=== PATIENT | male | born 1990 | race Caucasian/White ===

== ENCOUNTER 2025-07-24 20:31 | Emergency (ER) | payer BC, SELFPAY ==
[2025-07-24 20:33] VITALS: BP 170/84; PULSE 100; RESP 20; TEMP 37; O2SAT 98; BMI 31.2
[2025-07-24 20:54] VITALS: BP 141/96; PULSE 98
--- NOTE | 2025-07-24 21:03 | PC.NURSE ---
Pt medicated per [facility] Plan of care ongoing.
--- NOTE | 2025-07-24 22:01 | ED.GENADULT ---
HPI - General Adult General Chief complaint: Allergic Reaction Stated complaint: allergic reaction Time Seen by Provider: 07/24/25 21:16 Source: patient Mode of arrival: ambulatory Limitations: no limitations History of Present Illness ED Provider: Dr. Lock [facility] narrative: 34-year-old male presented hospital today for allergic reaction. Patient stated that he ate some food in his suddenly broke out in rash. Also feels some sensation in the back of the throat. He took some Benadryl prior to arrival here. Related Data Previous Rx's ?Medication ?Instructions ?Recorded diphenhydramine HCl 25 mg capsule 50 mg (2 x 25 mg) PO BEDTIME PRN 07/24/25 (Benadryl) allergic reaction #10 caps famotidine 40 mg tablet (Pepcid) 40 mg PO DAILY PRN allergic 07/24/25 reaction #4 tabs prednisone 50 mg tablet 50 mg PO DAILY #3 tabs 07/24/25 Allergies Allergy/AdvReac Type Severity Reaction Status Date / Time Penicillins Allergy Anaphylaxis Verified 07/24/25 20:38 tree nut Allergy Anaphylaxis Verified 07/24/25 20:38 Review of Systems Review of Systems: Pertinent review of systems as mentioned in HPI. All other system otherwise negative. [facility] Past Medical History [facility] Narrative: Tree nut allergies Social History Social History Smoked in Last 30 Days: No Use of substances other than those prescribed or required for medical reasons: Yes Substance Use Type: Marijuana Advance Directives: No Advance Directives Information Provided: No Physical Exam ED Exam Exam: General: Pleasant, no distress, interacting appropriately Head: Normacephalic, atraumatic, there is urticaria on the top of his forehead with red rash on his face ENT: oral mucosa moist, neck supple, no tracheal deviation, no sign of angioedema Cardiovascular: regular rate, regular rhythm, no murmurs, rubbing, gallops Respiratory: CTAB, no wheeze, rales, rhonchi Gastrointestinal: Soft, non distended, non tender, non guarding Neurological: Awake and alert, no facial droop noted Skin: Warm and dry Psychiatric: Appropriate mood and thoughts Vital Signs: Vital Signs - 24 hr 07/24/25 20:33 07/24/25 20:54 07/24/25 22:43 Temperature 98.6 F 98.8 F Pulse Rate 100 98 105 H Respiratory Rate 20 20 Blood Pressure 170/84 H 141/96 H 126/81 Pulse Oximetry 98 97 Oxygen Delivery Method Room Air Room Air BMI result Body Mass Index 31.2 Medications Administered Discontinued Medications Generic Name Dose Route Start Last Admin Trade Name Deidre PRN Reason Stop Dose Admin Epinephrine 0.3 mg 07/24/25 20:47 07/24/25 20:54 Epinephrine 1 Mg/Ml Vial IM 07/24/25 20:48 0.3 mg STAT STA Administration Famotidine 20 mg 07/24/25 20:47 07/24/25 20:53 Famotidine/Pf 20 Mg/2 Ml Vial IVPUSH 07/24/25 20:48 20 mg ONCE ONE Administration Sodium Chloride 1,000 mls @ 999 mls/hr 07/24/25 21:00 07/24/25 22:11 Ns IV 07/24/25 22:00 Infused .Q1H1M JOSE Infusion Methylprednisolone Sodium Succinate 125 mg 07/24/25 20:47 07/24/25 20:52 Methylprednisolone Sod Succ 125 Mg/2 Ml Vial IVPUSH 07/24/25 20:48 125 mg ONCE ONE Administration Medical Decision Making Medical Decision Making MDM Narrative: 34-year-old male presented hospital today for evaluation of allergic reaction. On evaluation I do not think patient has a anaphylaxis. Given his sensation in his throat. He stated that he feels a tight sensation in his throat. We will plan to give him a dose of IM epinephrine. IV Solu-Medrol will be given to the patient as well. IV Pepcid will be given to the patient. We will continue to observe the patient does time. Patient will be signed out to oncoming provider pending continuation of observation. I received sign-out from my colleague Dr. Lock -patient receive IM epinephrine, famotidine, methylprednisolone. I evaluated the patient, patient feeling much better, still having slightly itchy hands, no hives. Patient states that he is not having any difficulty breathing, feels so much better, requesting if he can not be discharged. It has been over 2 hours since patient has been here. Patient is alert oriented, vitals stable Patient was given an additional dose of p.o. diphenhydramine, famotidine and prednisone Patient states that he has multiple EpiPens at home. Physical exam after treatment: No angioedema, normal tone, normal uvula midline not edematous, clear lung sounds, no hives Differential Diagnosis Differential Diagnoses: The differential diagnosis associated with the presentation includes Anaphylaxis, angioedema, allergic reaction, urticaria Admission/Observation Consideration of admission/observation: Escalation of care including admission/observation considered (Given patient's initial symptoms, admission/observation was considered) Critical Care Time Critical Care Time Critical Care Time: Yes Total Critical Care Time: 35 Attestation: I have personally provided critical care time. Time includes review of lab data, radiology results, discussion with consultants, and monitoring for potential decompensation. Intervention performed as documented. Discharge Plan Discharge Clinical Impression: Allergic reaction Qualifiers: Encounter type: initial encounter Qualified Code(s): T78.40XA - Allergy, unspecified, initial encounter Patient Disposition: Home, Self-Care Instructions: General Allergic Reaction (ED) Additional Instructions: Please follow-up with your primary care physician tomorrow. If you have any worsening or new symptoms, please return to the emergency room or call 911 Prescriptions: New prednisone 50 mg tablet 50 mg PO DAILY Qty: 3 0RF famotidine [Pepcid] 40 mg tablet 40 mg PO DAILY PRN (Reason: allergic reaction) Qty: 4 0RF diphenhydramine HCl [Benadryl] 25 mg capsule 50 mg PO BEDTIME PRN (Reason: allergic reaction) Qty: 10 0RF Stand Alone Forms: Work/School Release Print Language: Peruvian
[2025-07-24 22:43] VITALS: BP 126/81; PULSE 105; RESP 20; TEMP 37.1; O2SAT 97
[2025-07-24 23:40] VITALS: BP 129/86; PULSE 98; RESP 18; TEMP 37; O2SAT 96
[2025-07-24 23:41] VITALS: BP 129/86; PULSE 98; RESP 18; TEMP 37; O2SAT 96
== END 2025-07-24 23:41 | disposition home or self-care (01) ==
PROVIDERS: Emergency Provider Emergency Medicine; PCP Internal Medicine
DX: R21 Rash and other nonspecific skin eruption (principal); T78.19XA Other adverse food reactions, not elsewhere classified, initial encounter; X58.XXXA Exposure to other specified factors, initial encounter
CPT/HCPCS: 96361; 96372; 96374; 96375; 99284; J0165; J1308; J2919